=== PATIENT | female | born 1970 | race Caucasian/White ===

== ENCOUNTER 2016-10-13 08:19 | Emergency (ER) | payer SELFPAY ==
[2016-10-13 08:38] VITALS: BP 113/73
[2016-10-13] MEDS ORDERED: XYLOCAINE 1% MPF 5 mL INFILTRATI ONE (09:05)
[2016-10-13] MEDS ORDERED: ROCEPHIN IM STA (09:05)
--- NOTE | 2016-10-13 09:05 | Emergency Department Report ---
HPI - General Chief Complaint: Sore Throat Time Seen by Provider: 10/13/16 09:03 - HPI HPI: Patient here reported that she's having cough congestion runny nose and sore throat for over a week. She says she had fever for one day. Taking over-the- counter cough and cold without any relief. Denies any shortness of breath or chest pain. Denies any drooling. Pain is 6 out of 10 to throats and burning. Pain is worse with coughing. She is a diabetic and her blood sugar is 132 today. She reports that it started off with congestion and runny nose and now it's in her chest. ED Past Medical Hx - Past Medical History Previous Medical History?: Yes Hx Hypertension: Yes Hx Diabetes: Yes Additional medical history: "MASS STOMACH" - Surgical History Past Surgical History?: No - Family History Family history: diabetes, hypertension - Social History Smoking Status: Never Smoker Substance Use Type: None - Medications Home Medications: Home Medications Medication Instructions Recorded Confirmed Last Taken Type Fenofibrate [Tricor] 145 mg PO QDAY #30 tablet 09/13/14 Unknown Rx Insulin NPH/Regular [NovoLIN 70/30] 15 unit SUB-Q BIDDIAB #30 units 09/13/14 Unknown Rx Insulin Regular, Human [HumuLIN R] 0 units SUB-Q ACHS #30 units 09/13/14 Unknown Rx Lisinopril [Zestril TAB] 2.5 mg PO DAILY #30 tablet 09/13/14 Unknown Rx Pantoprazole [Protonix TAB] 20 mg PO QDAY #30 tablet. 09/13/14 Unknown Rx Potassium Chloride 10 meq PO QDAY #7 capsule.er 09/13/14 Unknown Rx oxyCODONE /ACETAMINOPHEN [Percocet 1 tab PO Q6HR PRN #20 tablet 09/13/14 Unknown Rx 5/325] Gabapentin [Neurontin] 300 mg PO Q8HR #30 capsule 12/07/14 Unknown Rx traMADol [Ultram] 50 mg PO Q6HR PRN #20 tablet 12/07/14 Unknown Rx Cyclobenzaprine [Flexeril 10 MG 10 mg PO TID PRN #30 tablet 01/02/15 Unknown Rx TAB] Ibuprofen [Motrin] 800 mg PO Q8HR #30 tablet 01/02/15 Unknown Rx methylPREDNISolone [Medrol Dose 4 mg PO QDAY 6 Days 01/02/15 Unknown Rx Dawit] traMADol [Ultram 50 MG tab] 50 mg PO Q6HR PRN #20 tablet 01/02/15 Unknown Rx Albuterol Sulfate [Ventolin HFA] 2 puff IH Q4H PRN #1 hfa.aer.ad 10/13/16 Unknown Rx Amoxicillin/K Clav Tab [Augmentin 1 tab PO Q12HR #20 tab 10/13/16 Unknown Rx 875 mg] Benzonatate [Tessalon Perles] 100 mg PO Q8HR PRN #12 capsule 10/13/16 Unknown Rx predniSONE [Deltasone] 20 mg PO QDAY #5 tab 10/13/16 Unknown Rx ED Review of Systems ROS: Stated complaint: FEVER Other details as noted in HPI Comment: All other systems reviewed and negative Constitutional: chills, fever. denies: malaise Eyes: denies: eye pain, eye discharge ENT: throat pain, congestion. denies: ear pain, dental pain Respiratory: cough. denies: shortness of breath, SOB with exertion, SOB at rest , stridor, wheezing Cardiovascular: denies: chest pain, palpitations, edema, syncope Gastrointestinal: denies: abdominal pain, nausea, vomiting Musculoskeletal: denies: back pain, joint swelling, arthralgia, myalgia Skin: denies: rash Neurological: denies: headache, weakness, numbness, paresthesias, confusion, abnormal gait, vertigo Physical Exam - Physical Exam Vital Signs: Vital Signs 10/13/16 08:31 Temperature 98.3 F Pulse Rate 73 Respiratory 17 Rate Blood Pressure 113/73 O2 Sat by Pulse 97 Oximetry Vital Signs 10/13/16 10/13/16 08:31 09:25 Temperature 98.3 F Pulse Rate 73 Pulse Rate [ 66 Posterior Bilateral Throughout] Respiratory 17 Rate Respiratory 20 Rate [Posterior Bilateral Throughout] Blood Pressure 113/73 O2 Sat by Pulse 97 Oximetry General: This is a 46-year-old female well-nourished well-developed in no acute distress. Physical Exam: Head: Normocephalic atraumatic Mouth: Moist, no pharyngeal exudate or erythema. Uvula is midline and oral airway is patent. No facial swelling. No peritonsillar abscesses. Nose: Congested with erythema to mucosa. Clear Drainage. Maxillary and frontal sinuses nontender to palpate Neck: Supple, no C-spine tenderness, no tracheal deviation. Nontender to palpate. no adenopathy Ears: Bilateral TMs congested without erythema. Bilateral EAC without any redness swelling or drainage. Bilateral otitis nontender to palpate Abdomen: Soft, nontender to palpate in all quadrants, normal bowel sounds in all quadrant and negative CVA tenderness bilaterally. Back: No vertebral or paraspinal tenderness. No saddle anesthesia. Patient able to ambulate without any difficulties. Negative SLR bilaterally. Neurological: GCS of 15, alert and oriented 3. Speech is clear and fluid. Normal gait. No motor or sensory deficit. Normal reflexes. No facial drooping. No pronator drift and negative Romberg. Eyes: Bilateral pupils equal and reactive to light, bilateral EOM intact. Bilateral sclera and conjunctiva without injection. Normal accommodation. No nystagmus Lungs: Cleart to auscultate bilaterally no rhonchi wheezes or rales. Normal work of breathing extremity; No CCE. +2 pulses. No neurovascular compromise Cardiovascular: S1-S2, regular rate rhythm. No murmurs. Skin: clean Dry and intact no rash no lesions Psych: Normal mood and behavior ED Course Vital Signs 10/13/16 08:31 Temperature 98.3 F Pulse Rate 73 Respiratory 17 Rate Blood Pressure 113/73 O2 Sat by Pulse 97 Oximetry - Reevaluation(s) Reevaluation #1: 10/13/16 11:08 Upon reevaluation, patient lungs sounds are clear after given albuterol 5 mg and Atrovent 0.5 mg nebulizer treatment. Patient voiced that she is feeling much better. 10/13/16 11:08 ED Medical Decision Making - Radiology Data Radiology results: report reviewed X-ray of the chest revealed no acute cardiopulmonary findings. - Medical Decision Making Via [employer] ED course: Patient here with sore throat, cough, congestion runny nose for over a week. She was treated with albuterol 5 mg nebulizer and Atrovent 0.5 mg nebulizer and emergency room. She was also treated with both those on 60 mg by mouth and she reports that she is feeling better after treatment. Lung sounds are clear after treatment. I discussed the patient if she has bronchitis and will be treated with ventolin, steroids and Augmentin. Patient was understanding of discharge diagnosis and treatment plan and discharged home in stable condition with prescription for Ventolin HFA, Tessalon ,prednisone and Augmentin. Critical care attestation.: If time is entered above; I have spent that time in minutes in the direct care of this critically ill patient, excluding procedure time. ED Disposition Clinical Impression: Cough Acute bronchitis Qualifiers: Bronchitis organism: unspecified organism Qualified Code(s): J20.9 - Acute bronchitis, unspecified Pharyngitis Qualifiers: Pharyngitis/tonsillitis etiology: unspecified etiology Qualified Code(s): J02.9 - Acute pharyngitis, unspecified Disposition: DC- TO HOME OR SELFCARE Is pt being admited?: No Does the pt Need Aspirin: No Condition: Stable Instructions: Acute Bronchitis (ED), Pharyngitis (ED), Acute Cough (ED) Additional Instructions: Please take antibiotic as prescribed Please follow up at your primary care offices in 2-3 days and if you do not have a primary care doctor he can follow up with [facility] Prescriptions: Albuterol Sulfate [Ventolin HFA] 2 puff IH Q4H PRN #1 hfa.aer.ad PRN Reason: COUGH,WHEEZING Amoxicillin/K Clav Tab [Augmentin 875 mg] 1 tab PO Q12HR #20 tab Benzonatate [Tessalon Perles] 100 mg PO Q8HR PRN #12 capsule PRN Reason: Cough predniSONE [Deltasone] 20 mg PO QDAY #5 tab Referrals: PRIMARY CARE,MD [Primary Care Provider] - 2-3 Days [facility]– [place] 2[place] [Outside] - 2-3 Days Forms: Work/School Release Form(ED)
[2016-10-13] MEDS ORDERED: ATROVENT IH ONE (09:07)
[2016-10-13] MEDS ORDERED: PROVENTIL IH ONE (09:07)
--- NOTE | 2016-10-13 10:36 | XRay Report ---
CHEST TWO VIEWS: 10/13/16 08:19:00 CLINICAL: Cough and fever. COMPARISON: None FINDINGS: Normal heart and pulmonary vasculature.A few small bilateral hilar calcified granulomata. The lungs are normally expanded and clear.The bones and soft tissues are unremarkable. IMPRESSION: Old granulomatous disease.No acute cardiopulmonary process.
== END 2016-10-13 11:26 | disposition home or self-care (01) ==
LOC: ED 08:19
DX: J20.9 Acute bronchitis, unspecified (principal); J02.9 Acute pharyngitis, unspecified; I10 Essential (primary) hypertension; E11.9 Type 2 diabetes mellitus without complications; Z79.4 Long term (current) use of insulin
CPT/HCPCS: 71020; 82962; 87116; 87430; 94644; 96372; 99284; J0696

== ENCOUNTER 2018-10-16 14:07 | Emergency (ER) | payer SELFPAY ==
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
[2018-10-16] MEDS ORDERED: NORCO 5/325 PO ONE (18:02)
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
[2018-10-16 20:33] VITALS: BP 137/79
== END 2018-10-16 20:00 | disposition home or self-care (01) ==
LOC: ED 14:07
DX: S63.602A Unspecified sprain of left thumb, initial encounter (principal); S76.912A Strain of unspecified muscles, fascia and tendons at thigh level, left thigh, initial encounter; I10 Essential (primary) hypertension; E11.9 Type 2 diabetes mellitus without complications; Z79.899 Other long term (current) drug therapy; Z79.4 Long term (current) use of insulin; V89.2XXA Person injured in unspecified motor-vehicle accident, traffic, initial encounter; Y93.89 Activity, other specified; Y92.488 Other paved roadways as the place of occurrence of the external cause; Y99.8 Other external cause status
CPT/HCPCS: 99284